=== PATIENT | female | born 1965 | race Caucasian/White ===

== ENCOUNTER 2024-03-06 21:43 | Inpatient (IN) | payer MEDICAID ==
[~2024-03-06] VITALS: Ht 154.9 cm; Wt 56.0 kg
[2024-03-06] MEDS ORDERED: KETOROLAC TROMETHAMINE 30 MG/ML VIAL IVP ONE (23:00)
[2024-03-06 23:10] LABS: ANION GAP 9 mmol/L (8-16); BASOPHILS % (AUTO) 0.3 % (0.0-2.0); CALCIUM, TOTAL 9.4 mg/dL (8.8-10.5); CARBON DIOXIDE 28 mmol/L (22-29); CHLORIDE 101 mmol/L (98-107); CREATININE 0.66 mg/dL (0.60-1.30); EOSINOPHILS % (AUTO) 0.1 % (1.0-6.0); GLOMERULAR FILTR. RATE CALC > 60 mL/min (>60); GLUCOSE,RANDOM 154 mg/dL (70-110); HEMATOCRIT 38.1 % (36-46); HEMOGLOBIN 12.5 g/dL (12.0-16.0); LYMPHOCYTES # (AUTO) 2.1 K/uL (1.0-4.8); LYMPHOCYTES % (AUTO) 9.8 % (22.0-44.0); MEAN CORPUSCULAR HEMOGLOBIN 30.8 pg (26.0-34.0); MEAN CORPUSCULAR HGB CONC 32.8 G/dL (31.0-37.0); MEAN CORPUSCULAR VOLUME 94 fL (80-100); MONOCYTES # (AUTO) 1.1 K/uL (0.1-1.0); NEUTROPHILS # (AUTO) 18.2 K/uL (1.8-7.7); NEUTROPHILS % (AUTO) 84.8 % (40.0-70.0); PLATELET COUNT (AUTO) 327 K/uL (150-450); POTASSIUM 3.1 mmol/L (3.5-5.1); RED BLOOD CELL COUNT(AUTO) 4.06 MIL/uL (4.00-5.20); RED CELL DISTRIBUTION WIDTH 13.2 % (11.5-14.5); SODIUM SERUM 138 mmol/L (136-145); UREA NITROGEN, BLOOD 22 mg/dL (7-18); WHITE BLOOD COUNT (AUTO) 21.5 K/uL (4.5-11.0)
[2024-03-06 23:15] LABS: ALANINE AMINOTRANSFERASE 27 U/L (12-78); ALBUMIN 4.3 g/dL (3.4-5.0); ALKALINE PHOSPHATASE 51 U/L (46-116); ASPARTATE AMINOTRANSFERASE 23 U/L (15-37); BILIRUBIN,TOTAL 0.6 mg/dL (0.1-1.0); LIPASE 24 U/L (16-77); TOTAL PROTEIN, SERUM 8.1 g/dL (6.4-8.2)
[2024-03-06] MEDS ORDERED: SODIUM CHLORIDE 0.9% 100 ML ONE (23:29)
[2024-03-06] MEDS ORDERED: IOHEXOL 350 MG/ML 100 ML VIAL ONE (23:29)
[2024-03-07] MEDS: FAMOTIDINE 20 MG/2 ML VIAL IVP ONE (00:04)
[2024-03-07] MEDS: KETOROLAC TROMETHAMINE 15 MG/ML VIAL IVP ONE (00:04)
[2024-03-07] MEDS: SODIUM CHLORIDE 0.9% 1,000 ML IV ONE ×3 (00:05→06:02)
[2024-03-07] MEDS: POTASSIUM CHLORIDE 20 MEQ ER TABLET PO ONE (00:05)
[2024-03-07] MEDS: ONDANSETRON HCL 4 MG/2 ML VIAL IVP ONE ×2 (00:05→03:45)
[2024-03-07 02:21] LABS: APPEARANCE,URINE CLEAR (CLEAR); BILIRUBIN,URINE NEGATIVE (NEGATIVE); COLOR,URINE YELLOW (YELLOW); GLUCOSE, URINE (UA) NEGATIVE (NEGATIVE); KETONES,URINE 40-60 mg/dL (NEGATIVE); LEUKOCYTE ESTERASE ,URINE MODERATE (NEGATIVE); NITRATE,URINE NEGATIVE (NEGATIVE); OCCULT BLOOD,URINE NEGATIVE (NEGATIVE); PROTEIN,URINE TRACE mg/dL (NEGATIVE); SPECIFIC GRAVITIY, URINE 1.028 (1.003-1.030); UROBILINOGEN,URINE <=1.0 mg/dL (<=1.0)
[2024-03-07 02:40] LABS: AMORPHOUS SEDIMENT,UR Few /LPF (None Seen); BACTERIA,URINE None Seen /HPF (None Seen); RBC,URINE None Seen /HPF (0-2); SQUAMOUS EPITHELIAL CELL,UR Moderate /LPF (None Seen)
[2024-03-07] MEDS ORDERED: ONDA-104 PO (02:51)
[2024-03-07] MEDS ORDERED: ACET-2247 PO (02:51)
[2024-03-07] MEDS: METOCLOPRAMIDE HCL 5 MG/ML 2 ML VIAL IVP ONE (03:45)
[2024-03-07] MEDS: DiphenhydrAMINE HCL 50 MG/ML VIAL IVP ONE (03:45)
[2024-03-07] MEDS ORDERED: ONDANSETRON HCL 4 MG/2 ML VIAL IVP PRN (06:00)
[2024-03-07] MEDS ORDERED: MAGNESIUM HYDROXIDE SUSPENSION 30 ML UDCUP PO PRN (06:00)
[2024-03-07] MEDS ORDERED: ACETAMINOPHEN 325 MG TABLET PO PRN (06:00)
[2024-03-07] MEDS ORDERED: POTASSIUM CHL 10 MEQ/WATER 50 ML IV PRN (06:00)
[2024-03-07] MEDS ORDERED: MORPHINE SULFATE 2 MG/ML SYRINGE IVP PRN (06:00)
[2024-03-07 07:12] LABS: BASOPHILS % (AUTO) 0.2 % (0.0-2.0); EOSINOPHILS % (AUTO) 0 % (1.0-6.0); HEMATOCRIT 34.7 % (36-46); HEMOGLOBIN 11.8 g/dL (12.0-16.0); LYMPHOCYTES # (AUTO) 0.3 K/uL (1.0-4.8); LYMPHOCYTES % (AUTO) 2.7 % (22.0-44.0); MEAN CORPUSCULAR HEMOGLOBIN 31.7 pg (26.0-34.0); MEAN CORPUSCULAR HGB CONC 33.9 G/dL (31.0-37.0); MEAN CORPUSCULAR VOLUME 93 fL (80-100); MONOCYTES # (AUTO) 0.3 K/uL (0.1-1.0); MONOCYTES % (AUTO) 2.5 % (2.0-9.0); NEUTROPHILS # (AUTO) 10.2 K/uL (1.8-7.7); PLATELET COUNT (AUTO) 270 K/uL (150-450); RED BLOOD CELL COUNT(AUTO) 3.72 MIL/uL (4.00-5.20); RED CELL DISTRIBUTION WIDTH 13.5 % (11.5-14.5); WHITE BLOOD COUNT (AUTO) 10.8 K/uL (4.5-11.0)
[2024-03-07] MEDS: PANTOPRAZOLE SODIUM 40 MG/VIAL IVP SCH (08:08)
[2024-03-07 08:12] LABS: NEUTROPHILS % (AUTO) 94.6 % (40.0-70.0)
[2024-03-07 09:00] VITALS: BP 104/70; PULSE 90; RESP 18; TEMP 98; O2SAT 98
[2024-03-07 16:00] VITALS: BP 109/67; PULSE 83; RESP 18; TEMP 98.6; O2SAT 98
[2024-03-07] MEDS: POTASSIUM CHLORIDE 20 MEQ ER TABLET PO PRN (18:25)
[2024-03-07 19:51] VITALS: BP 106/71; PULSE 81; RESP 18; TEMP 99.7; O2SAT 99
[2024-03-07] MEDS: SODIUM CHLORIDE 0.9% 1,000 ML IV SCH (20:44)
[2024-03-08 05:39] VITALS: BP 103/65; PULSE 78; RESP 18; TEMP 99.1; O2SAT 95
[2024-03-08 08:25] VITALS: BP 114/79; PULSE 76; RESP 18; TEMP 98.4; O2SAT 76
[2024-03-08] MEDS: LOPERAMIDE HCL 2 MG CAPSULE PO PRN (14:31)
[2024-03-08] MEDS: AZITHROMYCIN 500 MG/NS 250 ML IV ONE (15:43)
[2024-03-08 16:34] VITALS: BP 110/73; PULSE 76; RESP 18; TEMP 98.2; O2SAT 100
[2024-03-08] MEDS ORDERED: AZIT500T4 PO (17:05)
[2024-03-08] MEDS ORDERED: LOPE-202 PO (17:05)
[2024-03-08] MEDS: LOPERAMIDE HCL 2 MG CAPSULE PO SCH (20:40)
[2024-03-09 05:22] VITALS: BP 110/68; PULSE 68; RESP 18; TEMP 98.3; O2SAT 97
[2024-03-09 08:04] VITALS: BP 106/68; PULSE 71; RESP 18; TEMP 98.8; O2SAT 100
[2024-03-09] MEDS: AZITHROMYCIN 500 MG TABLET PO SCH (08:17)
== END 2024-03-09 13:15 | disposition home or self-care (01) | DRG 248 ==
LOC: EMS 21:49 → EDBEDREQ 03-07 05:46 → EDH 03-07 07:18 → 6S 03-07 08:49
PROVIDERS: ADMIT Internal Medicine; ATTEND Internal Medicine
DX: A04.5 Campylobacter enteritis (principal); R65.10 Systemic inflammatory response syndrome (SIRS) of non-infectious origin without acute organ dysfunction; E86.0 Dehydration; E87.6 Hypokalemia; E78.00 Pure hypercholesterolemia, unspecified; Z79.899 Other long term (current) drug therapy
CPT/HCPCS: 74177; 76705; 80048; 80076; 81001; 82271; 83690; 84132; 85025; 89055; 99285; J0456; J1200; J1885; J2405; J2470; J2765; J3490; J7030; J7050